=== PATIENT | female | born 1975 | race Caucasian/White ===

== ENCOUNTER → 2017-12-14 | Outpatient (CLI) | payer BC ==
[2017-12-14 09:29] VITALS: BP 117/69; PULSE 83; TEMP 96.8; BMI 42.4
--- NOTE | 2017-12-14 09:57 | P.GSHP ---
History of Present Illness H&P Date: 12/14/17 The patient is a 42-year-old white female who underwent a routine mammogram on 11/14/2017, this was the first mammogram. On this examination she was noted to have a 10 mm well-circumscribed mass most likely a lymph node in the axillary tail of the left breast. She subsequently underwent additional diagnostic studies of the left breast which again revealed persistence of the density and an ultrasound was performed. The ultrasound was performed on and revealed an 8 mm mixed echo genic structure at 2:00. This was felt to be consistent with a lymph node and repeat evaluation in 3-6 months was recommended. The patient did not feel anything in her breast until after the radiographic studies were performed but now she can feel the area of concern. She denies any pain. She denies any change in size. She has not reported any nipple discharge or changes. No trauma, no infections to upper extremities or breast. family history: 1. maternal aunt: brain and thoracic ? type past surgical history: 1. none past medical hsitory: 1. Diabetes menarche: 14 pregnacy: 3, 3 children, first live at 23, breast fed: all fro about 2 years no periods as patient has a Merina IUD, for 13 years no radiation exposure to chest wall social history: smoke: none alcohol: none drugs: none ROS: HEENT: none lungs: none heart NONE GI: none : none Musculoskeletal: None Endocrine: Diabetes - Constitutional Constitutional: Denies chills, Denies fever - EENT Eyes: bilateral as per HPI Ears: deny: decreased hearing, tinnitus Ears, nose, mouth and throat: Denies headache, Denies sore throat - Breasts Breasts: bilateral: as per HPI - Cardiovascular Cardiovascular: Denies chest pain, Denies shortness of breath - Respiratory Respiratory: Denies cough, Denies 7 - Gastrointestinal Gastrointestinal: Denies abdominal pain, Denies diarrhea, Denies nausea, Denies vomiting - Genitourinary (Female) Genitourinary: Reports as per HPI - Musculoskeletal Musculoskeletal: Reports as per HPI - Integumentary Integumentary: Denies pruritus, Denies rash - Neurological Comment: Occasional tingling in her fingers at the tabs and in her feet at the end of the day Neurological: Denies numbness, Denies weakness - Psychiatric Psychiatric: Denies anxiety, Denies depression - Endocrine Comment: diabetes on metformin and Victoza - Hematologic/Lymphatic Comment: none - Allergic/Immunologic Comment: none Medications and Allergies Home Medications Medication Instructions Recorded Confirmed Type Liraglutide [Victoza 3-Haroldo] 1.8 mg SQ DAILY 12/14/17 12/14/17 History Lisinopril [Zestril] 2.5 mg PO HS 12/14/17 12/14/17 History metFORMIN HCL [Glucophage] 500 mg PO BID 12/14/17 12/14/17 History Surgical - Exam - General well developed, well nourished, no distress, obese - Eyes normal ocular movement - ENT no hearing loss, no congestion - Neck no masses, trachea midline - Respiratory normal respiratory effort, clear to auscultation - Cardiovascular Rhythm: regular Heart Sounds: normal: S1, S2 - Abdomen Abdomen: soft, non tender, no guarding, no rigid, no rebound - Integumentary no rash - Neurologic no disoriented, no combative - Musculoskeletal normal gait, normal posture - Psychiatric oriented to time, oriented to person, oriented to place, speech is normal, memory intact Breast examination: Right breast: Multiple positional exam no dominant masses or nodules of concern Right axilla: No adenopathy of concern Left breast: Multiple positional exam no dominant masses or nodules of concern fibrocystic changes Left axilla: No adenopathy of concern Examination of the neck, axilla, and groins do not reveal any adenopathy of concern Results 1. Patient's mammogram and ultrasound were reviewed with radiology, where it appears to be a benign lymph node was identified in the left breast Assessment and Plan Assessment: Impression/plan: 1. Mammographic and ultrasound abnormality left breast felt to be a benign lymph node 2. Diabetes Plan: 1. Repeat left breast ultrasound in 3 months with repeat physician exam at that time 2. If patient fails anything of concern prior event like to see her sooner 3. Diabetic control as per medicine Cc: Zonia Gerard
== END | disposition home or self-care (01) ==
LOC: WWCWWP 09:04
PROVIDERS: ATTEND Surgery
DX: N63.20 Unspecified lump in the left breast, unspecified quadrant (principal); Z45.9 Encounter for adjustment and management of unspecified implanted device

== ENCOUNTER → 2018-03-19 | Outpatient (CLI) | payer BC ==
--- NOTE | 2018-03-20 07:48 | USB ---
Reason for exam: follow-up at short interval from prior study. Physical Findings: Nurse did not find any significant physical abnormalities on exam. US Breast LT Left complete breast ultrasound includes all four quadrants, the retroareolar region and axilla. Finding demonstrates a 1.1 x 0.5 x 0.9cm oval, probable lymph node, hypoechoic, vascular lesion at 2 o'clock. Findings most compatible with lymph node. These results were verbally communicated with the patient and result sheet given to the patient on 03/19/18. ASSESSMENT: Benign, BI-RAD 2 RECOMMENDATION: Routine screening mammogram of both breasts in 9 months. Back on schedule for November 2018.
== END | disposition home or self-care (01) ==
LOC: RADUSWWP 14:25
PROVIDERS: ATTEND Surgery
DX: N63.20 Unspecified lump in the left breast, unspecified quadrant (principal)

== ENCOUNTER → 2018-12-04 | Outpatient (CLI) | payer BC ==
--- NOTE | 2018-12-04 14:05 | MM ---
Reason for exam: screening (asymptomatic). Last mammogram was performed 1 year ago. Physical Findings: A clinical breast exam by your physician is recommended on an annual basis and results should be correlated with mammographic findings. MG 3D Screening Mammo W/Cad Bilateral CC and MLO view(s) were taken. Prior study comparison: November 22, 2017, mammogram, performed at [facility]. November 14, 2017, mammogram, performed at [facility]. There are scattered fibroglandular densities. There is chronic nodularity bilaterally. No significant changes when compared with prior studies. ASSESSMENT: Benign, BI-RAD 2 RECOMMENDATION: Routine screening mammogram of both breasts in 1 year.
== END | disposition home or self-care (01) ==
LOC: RADMAMWWP 08:51
PROVIDERS: ATTEND Surgery
DX: Z12.31 Encounter for screening mammogram for malignant neoplasm of breast (principal)
CPT/HCPCS: 77063; 77067

== ENCOUNTER → 2018-12-18 | Outpatient (CLI) | payer BC ==
[2018-12-18 16:01] VITALS: BP 152/94; PULSE 72; RESP 16; TEMP 98.7; BMI 38.2
--- NOTE | 2018-12-18 16:25 | P.PN ---
Subjective Progress Note Date: 12/18/18 Principal diagnosis: fibrocystic breast disease There is a 43-year-old female who had a routine mammogram initially [address]. This was her first mammogram. On this exam she was noted to have a 10 mm well- circumscribed mass most likely felt to be a lymph node in the axillary tail the left breast. She subsequently underwent additional diagnostic studies which again revealed persistence of the density and ultrasound was performed. The ultrasound revealed an 8 mm mixed echogenic structure at 2:00. This is felt to be consistent with a lymph node and repeat evaluation in 6 months time was recommended. The patient had an ultrasound repeated of the left exit silver and breast on . This revealed a 1.1 x 0.9 cm probable lymph node, at 2:00. This was felt to be benign and routine screening mammogram of both breast in 9 months time was recommended. [place] [address]. This revealed chronic nodularity with no significant changes and routine screening of both breasts in 1 year was recommended. The patient does not feel anything of concern in her breast. There is no nipple discharge or changes for which she is concerned. Family history: 1. Maternal aunt: Brain possibly thoracic cancer Patient surgical history: Negative Past medical history: Diabetes Hormonal history: Menarche: 14 , first live at 23, she breast fed all of them for approximately 2 years Patient does not have periods she has a Mirena IUD for 13 years Social history: Smoke: Negative Alcohol: Negative Drugs: Negative Review of systems: HEENT: Negative Lungs: Negative Heart: Negative GI: Negative Musculoskeletal: Negative Integument: Negative Objective - Vital Signs Vital signs: Vital Signs Temp 98.7 F 12/18/18 15:59 Pulse 72 12/18/18 15:59 Resp 16 12/18/18 15:59 BP 152/94 12/18/18 15:59 Pulse Ox 97 12/18/18 15:59 Intake & Output 12/17/18 12/18/18 12/18/18 18:59 06:59 18:59 Weight 104.326 kg - Exam BMI 38.3 - Constitutional General appearance: Present: obese - EENT Eyes: Present: EOMI ENT: Present: hearing grossly normal - Neck Neck: Present: normal ROM - Respiratory Respiratory: bilateral: CTA - Cardiovascular Rhythm: regular Heart sounds: normal: S1, S2 - Gastrointestinal Gastrointestinal Comment(s): no guarding or rebound General gastrointestinal: Present: soft - Integumentary Integumentary: Present: normal turgor - Musculoskeletal Musculoskeletal: Present: gait normal - Psychiatric Psychiatric: Present: A&O x's 3, appropriate affect, intact judgment & insight - Additional findings Additional findings: Breast examination: Right breast: Multiple positional exam fibrocystic changes, no dominant mass or notches of concern Right axilla: No adenopathy of concern Left breast: Multiple transitional exam no dominant masses or nodules of concern Left axilla: No adenopathy of concern Assessment and Plan Assessment: Impression: 1. Fibrocystic breast changes 2. Left axillary adenopathy as per ultrasound felt to be benign 3. diabetes Plan: 1. Repeat bilateral mammogram in 1 year with physician exam at that time 2. Medical management of medical conditions CC: DR. Moustapha Emmanuel
== END | disposition home or self-care (01) ==
LOC: WWCWWP 15:47
PROVIDERS: ATTEND Surgery
DX: Z53.9 Procedure and treatment not carried out, unspecified reason (principal)

== ENCOUNTER → 2021-11-29 | Outpatient (CLI) | payer BC ==
--- NOTE | 2021-11-30 12:01 | MM ---
Reason for Exam: Screening (asymptomatic). Last mammogram was performed 3 year(s) and 0 month(s) ago. Patient History: Menarche at age 13. First Full-Term at age 23. Currently using Hormonal Contraceptives, starting at age 30. Risk Values: Jackie 5 year model risk: 0.8%. NCI Lifetime model risk: 9.5%. Prior Study Comparison: 11/14/2017 Screening Mammogram, [facility]. 11/22/2017 Screening Mammogram, [facility]. 12/04/2018 Bilateral Screening Mammogram, [facility]. Tissue Density: There are scattered fibroglandular densities. Findings: Analyzed By CAD. Benign-appearing bilateral axillary lymph nodes are redemonstrated along with stable chronic nodularity towards the left axilla. There is no suspicious group of microcalcifications or new suspicious mass in either breast. Overall Assessment: Benign, BI-RAD 2 Management: Screening Mammogram of both breasts in 1 year. A clinical breast exam by your physician is recommended on an annual basis and results should be correlated with mammographic findings. Electronically signed and approved by: Jag Sosa M.D.
== END | disposition home or self-care (01) ==
LOC: RADMAMWWP 09:32
PROVIDERS: ATTEND Obstetrics & Gynecology
DX: Z12.31 Encounter for screening mammogram for malignant neoplasm of breast (principal)
CPT/HCPCS: 77063; 77067

== ENCOUNTER → 2023-01-16 | Outpatient (CLI) | payer BC ==
--- NOTE | 2023-01-17 18:57 | MM ---
Reason for Exam: Screening (asymptomatic). Last mammogram was performed 1 year(s) and 2 month(s) ago. Patient History: Menarche at age 13. First Full-Term at age 23. Premenopausal. Currently using Hormonal Contraceptives, starting at age 30. Risk Values: Jackie 5 year model risk: 0.8%. NCI Lifetime model risk: 9.4%. Prior Study Comparison: 11/22/2017 Screening Mammogram, [facility]. 12/04/2018 Bilateral Screening Mammogram, [facility]. 11/29/2021 Bilateral MG 3D screening mammo w/cad, [facility]. Tissue Density: There are scattered fibroglandular densities. Findings: Analyzed By CAD. Pattern appears symmetrical and stable. Chronic nodularity is present in the outer left breast. No significant interval changes are evident. No suspicious groups of microcalcifications, spiculated or lobular masses, architectural distortion or other secondary signs of malignancy are mammographically apparent. Overall Assessment: Benign, BI-RAD 2 Management: Screening Mammogram of both breasts in 1 year. A negative mammogram report should not preclude additional follow up of suspicious palpable abnormalities. Patient should continue monthly self breast exam. A clinical breast exam by your physician is recommended on an annual basis and results should be correlated with mammographic findings. Electronically signed and approved by: Blaine Mathews D.O. Radiologis
== END | disposition home or self-care (01) ==
LOC: RADMAMWWP 07:52
PROVIDERS: ATTEND Obstetrics & Gynecology
DX: Z12.31 Encounter for screening mammogram for malignant neoplasm of breast (principal)
CPT/HCPCS: 77063; 77067

== ENCOUNTER → 2024-02-08 | Outpatient (CLI) | payer BC ==
--- NOTE | 2024-02-25 09:54 | MM ---
Reason for Exam: Screening (asymptomatic). Last screening mammogram was performed 12 month(s) ago. Patient History: Menarche at age 13. First Full-Term at age 23. Premenopausal. Currently using Hormonal Contraceptives, starting at age 30. Risk Values: Jackie 5 year model risk: 0.8%. NCI Lifetime model risk: 9.3%. Prior Study Comparison: 12/04/2018 Bilateral Screening Mammogram, [facility]. 11/29/2021 Bilateral MG 3D screening mammo w/cad, [facility]. 01/16/2023 Bilateral MG 3D screening mammo w/cad, [facility]. Tissue Density: The breasts are heterogeneously dense, which may obscure small masses. Findings: Analyzed By CAD. There is no suspicious group of microcalcifications or new suspicious mass in either breast. Overall Assessment: Negative, BI-RAD 1 Management: Screening Mammogram of both breasts in 1 year. . Patient should continue monthly self-breast exams. A clinical breast exam by your physician is recommended on an annual basis. This exam should not preclude additional follow-up of suspicious palpable abnormalities. Note on Jackie scores and lifetime risk: 1. A Jackie score greater than 3% is considered moderate risk. If this is the case, consider specialist referral to assess eligibility for a risk reducing agent. 2. If overall lifetime risk for the development of breast cancer is 20% or higher, the patient may qualify for future screening with alternating mammogram and breast MRI. Electronically signed and approved by: Juan Mon M.D. Radiologis
== END | disposition home or self-care (01) ==
LOC: RADMAMWWP 07:30
PROVIDERS: ATTEND Family Medicine
DX: R92.333 Mammographic heterogeneous density, bilateral breasts (principal)
CPT/HCPCS: 77063; 77067